=== PATIENT | male | born 1940 | race Caucasian/White ===

== ENCOUNTER 2017-04-08 06:25 | Emergency (ER) | payer OTHER, MEDICARE ==
--- NOTE | 2017-04-08 07:26 | EDPHY ---
H & P Time Seen by Provider: 04/08/17 07:25 HPI/ROS: Chief complaint. Pain in neck HPI. Patient is a 77-year-old male presents emergency department with 3 day history of nontraumatic neck pain. 3 days ago he awoke and had a right-sided stiff sore neck which has become more generalized though right-sided continues to be somewhat more symptomatic. Was better after taking Advil. He did have a flu shot 4 days ago. He has no URI symptoms and no fever. He has had no injury or unusual activity. No similar symptoms previously. No weakness or tingling to arms or legs. No chest discomfort shortness of breath or abdominal pain. Increased pain with movement of his neck ROS Constitutional. no fever/chills, no weakness Eyes. no problems with vision ENT. no sore throat, no nasal drainage Cardiovascular. no chest pain Respiratory. no shortness of breath, no cough Abdominal. no abdominal pain, no nausea/vomiting, no diarrhea . no problems urinating MS. right-sided neck pain Skin. no rash Lymph. no swollen glands Neuro. no headache, no dizziness, no difficulty walking or with speech Past Medical/Surgical History: Hypothyroid, GERD, arthritis Lumbar spine MRI in the past shows spinal stenosis and multiple level HNP Social History: Single, nonsmoker, no alcohol Smoking Status: Never smoked Physical Exam: General Appearance: Alert well-developed male mild distress vital signs are stable Eyes: Pupils equal and round no pallor or injection. ENT, Mouth: Mucous membranes are moist. Respiratory: There are no retractions, lungs are clear to auscultation. Cardiovascular: Regular rate and rhythm. Gastrointestinal: Abdomen is soft and nontender, no masses, bowel sounds normal. Neurological: Awake and alert, sensory and motor exams grossly normal. Skin: Warm and dry, no rashes. Musculoskeletal: Right side neck pain with palpable spasm. Left-sided neck not tender and without findings of spasm No tenderness over the cervical spine. TLS spine are without symptoms. Extremities symmetrical, full range of motion. Psychiatric: Patient is oriented X 3, there is no agitation. Constitutional: Initial Vital Signs Temperature (C) 36.7 C 04/08/17 06:34 Heart Rate 73 04/08/17 06:34 Respiratory Rate 20 04/08/17 06:34 Blood Pressure 149/75 H 04/08/17 06:34 O2 Sat (%) 94 10/02/17 06:34 O2 Delivery Mode Room Air Allergies/Adverse Reactions: azithromycin [From Zithromax] Allergy (Mild, Verified 04/08/17 06:34) GI upset oxycodone [Oxycodone] Allergy (Mild, Verified 04/08/17 06:34) GI upset BEE STING Allergy (Severe, Uncoded 04/08/17 06:34) swells up SHELLFISH Allergy (Severe, Uncoded 04/08/17 06:34) swells up Home Medications: Medication Instructions Recorded Hydrocodone/Acetaminophen 1 - 2 tab PO Q4H PRN #15 tab 12/13/13 [Hydrocodon-Acetaminophen 5-300] Levothyroxine [Synthroid 25 mcg 25 mcg PO DAILY06 12/13/13 (RX)] Montelukast Sodium [Singulair] 10 mg PO DAILY@1800 12/13/13 Omeprazole [Prilosec 20 mg] 20 mg PO DAILY 12/13/13 Ranitidine HCl [Zantac 75] 75 mg PO 12/13/13 CYCLOBENZAPRINE HCL [Flexeril] 5 mg PO TIDPRN PRN #10 tab 04/08/17 Medical Decision Making - Diagnostics Imaging Results: Imaging Impressions Cervical Spine MRI 04/08/17 07:38 Impression: 1. C5-C6: Increased degenerative change with stable mild spinal canal narrowing and increased severe bilateral neural foraminal stenosis, right greater than left. 2. C4-C5: Increased severe left and mild to moderate neural foraminal stenosis with stable mild spinal canal narrowing. 3. Additional findings as above. Findings discussed with Aguila Coyne on April 08, 2017 at 9:23 a.m. Cervical spine reviewed by me and discussed with Dr. Gutierrez shows fairly severe canal stenosis at C5-6 however no significant cord compression Procedures: IV normal saline. Toradol IV. Lidocaine patch ED Course/Re-evaluation: 8:45 a.m. patient is back from MRI. We had noted that his blood sugar was low. He is having juice and crackers. He is feeling much better with the lidocaine patch in IV Toradol. Re-evaluation again at 9:30 a.m.. Patient is feeling better. He and I discussed imaging and laboratory evaluation. We discussed treatment plan including criteria for return importance of follow-up and further evaluation. He expresses understanding and agreement Differential Diagnosis: This appears to be significant muscle spasm to the right paracervical muscles. I considered spinal stenosis and HNP as well. There are no neurologic findings - Data Points Laboratory Results: Laboratory Results 04/08/17 07:45 04/08/17 07:45 04/08/17 04/08/17 07:45 07:45 WBC 7.39 10^3/uL 10^3/uL (3.80-9.50) RBC 5.10 10^6/uL 10^6/uL (4.40-6.38) Hgb 15.7 g/dL g/dL (13.7-17.5) Hct 47.0 % % (40.0-51.0) MCV 92.2 fL fL (81.5-99.8) MCH 30.8 pg pg (27.9-34.1) MCHC 33.4 g/dL g/dL (32.4-36.7) RDW 13.3 % % (11.5-15.2) Plt Count 184 10^3/uL 10^3/uL (150-400) MPV 10.1 fL fL (8.7-11.7) Neut % (Auto) 63.2 % % (39.3-74.2) Lymph % (Auto) 21.2 % % (15.0-45.0) Rogers % (Auto) 11.0 % % (4.5-13.0) Eos % (Auto) 3.2 % % (0.6-7.6) Baso % (Auto) 0.9 % % (0.3-1.7) Nucleat RBC Rel Count 0.0 % % (0.0-0.2) Absolute Neuts (auto) 4.66 10^3/uL 10^3/uL (1.70-6.50) Absolute Lymphs (auto) 1.57 10^3/uL 10^3/uL (1.00-3.00) Absolute Monos (auto) 0.81 10^3/uL H 10^3/uL (0.30-0.80) Absolute Eos (auto) 0.24 10^3/uL 10^3/uL (0.03-0.40) Absolute Basos (auto) 0.07 10^3/uL 10^3/uL (0.02-0.10) Absolute Nucleated RBC 0.00 10^3/uL 10^3/uL (0-0.01) Immature Gran % 0.5 % % (0.0-1.1) Immature Gran # 0.04 10^3/uL 10^3/uL (0.00-0.10) Sodium 137 mEq/L mEq/L (134-144) Potassium 4.4 mEq/L mEq/L (3.5-5.2) Chloride 103 mEq/L mEq/L (97-110) Carbon Dioxide 27 mEq/l mEq/l (22-31) Anion Gap 7 mEq/L L mEq/L (8-16) BUN 19 mg/dL mg/dL (7-23) Creatinine 1.2 mg/dL mg/dL (0.7-1.3) Estimated GFR 59 Glucose 69 mg/dL L mg/dL (70-100) Calcium 9.1 mg/dL mg/dL (8.5-10.4) Medications Given: Discontinued Medications Ketorolac Tromethamine (Toradol) 30 mg IVP EDNOW ONE Stop: 04/08/17 07:38 Last Admin: 04/08/17 07:50 Dose: 30 mg Lidocaine (Lidoderm 5%) 1 ea TD EDNOW ONE Stop: 04/08/17 07:38 Last Admin: 04/08/17 07:50 Dose: 1 ea Departure - Departure Disposition: Home, Routine, Self-Care Clinical Impression: Cervical strain, acute Qualifiers: Encounter type: initial encounter Qualified Code(s): S16.1XXA - Strain of muscle, fascia and tendon at neck level, initial encounter Condition: Good Instructions: Acute Neck Pain (ED) Additional Instructions: Ibuprofen 600 mg every 6 hours for discomfort. Flexeril as muscle relaxer. Lidocaine patches are also helpful. Return for worsening symptoms. Recheck 2 days if not improving Referrals: Sofia Villarreal MD [Primary Care Provider] - 2-3 days, if not improved Maryanne Freed MD [Medical Doctor] - 2-3 days, if not improved Prescriptions: CYCLOBENZAPRINE HCL [Flexeril] 5 mg PO TIDPRN PRN #10 tab PRN Reason: Spasms
[2017-04-08] MEDS ORDERED: LIDOCAINE 5% 1 EA PATCH TD ONE (07:37)
[2017-04-08] MEDS ORDERED: KETOROLAC 30 MG/1 ML SDV IVP ONE (07:37)
[2017-04-08 07:54] LABS: % IMMATURE GRANULYOCYTES 0.5 % (0.0-1.1); ABSOLUTE IMMATURE GRANULOCYTES 0.04 10^3/uL (0.00-0.10); ADD DIFF? NO; ADD MORPH? NO; ADD SCAN? NO; ATYPICAL LYMPHOCYTE FLAG 0 (0-99); FRAGMENT RBC FLAG 0 (0-99); HEMOGLOBIN 15.7 g/dL (13.7-17.5); LEFT SHIFT FLG 0 (0-99); LIPEMIA HEMOLYSIS FLAG 80 (0-99); MEAN CELL HEMOGLOBIN 30.8 pg (27.9-34.1); MEAN CELL HEMOGLOBIN CONCENTR. 33.4 g/dL (32.4-36.7); MEAN CELL VOLUME 92.2 fL (81.5-99.8); MEAN PLATELET VOLUME 10.1 fL (8.7-11.7); PLATELET CLUMPS FLAG 0 (0-99); PLATELET COUNT 184 10^3/uL (150-400); RED CELL DISTRIBUTION WIDTH 13.3 % (11.5-15.2)
[2017-04-08 08:09] LABS: ANION GAP 7 mEq/L (8-16); CALCIUM 9.1 mg/dL (8.5-10.4); CARBON DIOXIDE 27 mEq/l (22-31); CHLORIDE 103 mEq/L (97-110); CREATININE 1.2 mg/dL (0.7-1.3); GLOMERULAR FILTRATION RATE 59; GLUCOSE 69 mg/dL (70-100); POTASSIUM 4.4 mEq/L (3.5-5.2); SODIUM 137 mEq/L (134-144)
[2017-04-08 09:56] VITALS: BP 140/80; PULSE 85; RESP 18; TEMP 98.4; O2SAT 95
[2017-04-08] MEDS ORDERED: PATCH REMOVAL 1 EA PATCH TD SCH (21:00)
== END 2017-04-08 09:56 | disposition home or self-care (01) ==
DX: S16.1XXA Strain of muscle, fascia and tendon at neck level, initial encounter (principal); X58.XXXA Exposure to other specified factors, initial encounter
CPT/HCPCS: 72141; 96374; 99285; J1885

== ENCOUNTER 2017-05-24 10:18 | Emergency (ER) | payer OTHER, MEDICARE ==
[2017-05-24 10:41] VITALS: BP 106/61; PULSE 66; RESP 18; TEMP 98.4; O2SAT 94
--- NOTE | 2017-05-24 11:04 | EDPHY ---
H & P Smoking Status: Never smoked Time Seen by Provider: 05/24/17 10:52 HPI/ROS: CHIEF COMPLAINT: Bleeding from tongue HISTORY OF PRESENT ILLNESS: 77-year-old male with no anticoagulant use history complaining of intermittent bleeding from the right lateral aspect of his tongue. Unsure if he bit his tongue or not. Currently hemostatic. His primary concern as he tells me is his daughter from oral cancer 2 years ago and she initially was evaluated by healthcare provider for bleeding tongue , and he is concerned he may have malignancy. PHYSICAL EXAM (Prior to examination, patient consented to physical exam, hands were washed and my usual and customary physical exam procedures followed) 1) GENERAL: Well-developed, well-nourished, alert and oriented. Appears to be in no acute distress. tearful. 2) HEAD: Normocephalic 3) HEENT: sclera anicteric. Oropharynx examined, no active bleeding, there is an area of friability right lateral posterior aspect of tongue in the general location of his molars. No evidence of gingivostomatitis, floor of mouth soft no evidence of Vik's angina. 4) LUNGS: Breathing comfortably. (Dixie,Jamee Judy) Constitutional: Initial Vital Signs Temperature (C) 36.9 C 05/24/17 10:38 Heart Rate 66 05/24/17 10:38 Respiratory Rate 18 05/24/17 10:38 Blood Pressure 106/61 05/24/17 10:38 O2 Sat (%) 94 05/24/17 10:38 O2 Delivery Mode Nasal Cannula Allergies/Adverse Reactions: azithromycin [From Zithromax] Allergy (Mild, Verified 04/08/17 06:34) GI upset oxycodone [Oxycodone] Allergy (Mild, Verified 04/08/17 06:34) GI upset BEE STING Allergy (Severe, Uncoded 04/08/17 06:34) swells up SHELLFISH Allergy (Severe, Uncoded 04/08/17 06:34) swells up Home Medications: Medication Instructions Recorded Hydrocodone/Acetaminophen 1 - 2 tab PO Q4H PRN #15 tab 12/13/13 [Hydrocodone-Acetamin 5-300 mg] Levothyroxine [Synthroid 25 mcg 25 mcg PO DAILY06 12/13/13 (RX)] Montelukast Sodium [Singulair] 10 mg PO DAILY@1800 12/13/13 Omeprazole [Prilosec 20 mg] 20 mg PO DAILY 12/13/13 Ranitidine HCl [Zantac 75] 75 mg PO 12/13/13 CYCLOBENZAPRINE HCL [Flexeril] 5 mg PO TIDPRN PRN #10 tab 04/08/17 MDM/Departure - [facility] ED Course/Re-evaluation: This patient has no active bleeding to the right lateral aspect of his tongue. He does express concern about possible malignancy as his daughter of oral cancer 2 years ago. I have recommended he follow up with oral surgery and/or otolaryngology. He is agreeable with this. States that he has seen an oral surgeon some years back, name unknown and will probably go directly from the ER to his office. This time I do not think that diagnostic studies are indicated from the emergency department. He has been given this follow-up and referral information.Care of patient under supervision of secondary supervising physician Dr Jones . (Jamee Colin) The patient was evaluated and managed by the Physician Instrument Installer. I discussed the patient's presentation and course with the physician railways assistant and agree with the evaluation. My co-signature indicates that I have reviewed this chart and I agree with the findings and plan of care as documented. I am the secondary supervising physician. (Jacki Jones) - Depart Disposition: Home, Routine, Self-Care Clinical Impression: Hemorrhage of tongue Condition: Good Instructions: Gingivostomatitis (ED) Additional Instructions: Return to the ER if you develop further episodes of bleeding that do not stop, develop dizziness or any other symptoms that concern you. Referrals: Cristi Galeana DDS [Doctor of Dental Surgery] - 1-2 days without fail (Dr. Cristi Galeana is an oral surgeon) Aguila Phoenix MD [Medical Doctor] - 1-2 days without fail (Dr. Aguila Phoenix is an ear nose and throat doctor)
== END 2017-05-24 11:13 | disposition home or self-care (01) ==
DX: K14.8 Other diseases of tongue (principal)

== ENCOUNTER → 2017-06-30 | Outpatient (CLI) | payer OTHER, MEDICARE | LOC: FIMAGING 07:47 | PROVIDERS: ATTEND Physical Medicine & Rehabilitation Pain Medicine | DX: M54.16 Radiculopathy, lumbar region (principal); M51.36 Other intervertebral disc degeneration, lumbar region; M48.061 Spinal stenosis, lumbar region without neurogenic claudication ==

== ENCOUNTER → 2018-07-14 | Outpatient (CLI) | payer OTHER, MEDICARE | LOC: FLAB 13:27 | PROVIDERS: ATTEND Physical Medicine & Rehabilitation Pain Medicine | DX: M47.812 Spondylosis without myelopathy or radiculopathy, cervical region (principal); M51.36 Other intervertebral disc degeneration, lumbar region ==

== ENCOUNTER 2018-10-03 12:18 | Observation (INO) | payer OTHER, MEDICARE ==
[2018-10-03 13:35] LABS: PLATELET COUNT 192 10^3/uL (150-400)
--- NOTE | 2018-10-03 13:49 | EDPHY ---
H & P Stated Complaint: blind spot right eye since Saturday Time Seen by Provider: 10/03/18 13:12 HPI/ROS: CHIEF COMPLAINT: Vision loss right eye HISTORY OF PRESENT ILLNESS: 78-year-old male presents with vision loss in his right eye. Onset of painless visual loss 4 days ago. The vision loss consists of loss of central vision with retained peripheral vision. He is having difficulty reading because of the vision loss. He has a history of a retinal detachment and saw his quality assurance supervisor final yesterday. Eye exam was reportedly normal. No weakness or numbness. No prior history of CVA or TIA. REVIEW OF SYSTEMS: complete 10 point ROS reviewed and is negative except for the noted elements in the HPI - Personal History Current Tetanus Diphtheria and Acellular Pertussis (TDAP): Yes - Medical/Surgical History Hx Asthma: Yes Hx Chronic Respiratory Disease: No Hx Diabetes: No Hx Cardiac Disease: No Hx Renal Disease: No Hx Cirrhosis: No Hx Alcoholism: No Hx HIV/AIDS: No Hx Splenectomy or Spleen Trauma: No Other PMH: GERD, hypothyroid, ?arthritis - Social History Smoking Status: Never smoked - Physical Exam Exam: General Appearance: Alert, pleasant Eyes: Pupils equal and round, no conjunctival pallor ENT, Mouth: Mucous membranes moist Neck: Normal inspection Respiratory: Lungs are clear to auscultation Cardiovascular: Regular rate and rhythm Gastrointestinal: Abdomen is soft and nontender Neurological: Alert, oriented x3, cranial nerves II through XII intact, motor 5 /5, sensory intact to light touch, normal gait Skin: Warm and dry Extremities: Normal inspection Psychiatric: Mood and affect normal Constitutional: Initial Vital Signs Temperature (C) 36.9 C 10/03/18 12:35 Heart Rate 59 L 10/03/18 12:35 Respiratory Rate 16 10/03/18 12:35 O2 Sat (%) 95 10/03/18 12:35 O2 Delivery Mode Room Air Allergies/Adverse Reactions: azithromycin [From Zithromax] Allergy (Mild, Verified 04/08/17 06:34) GI upset oxycodone [Oxycodone] Allergy (Mild, Verified 04/08/17 06:34) GI upset BEE STING Allergy (Severe, Uncoded 04/08/17 06:34) swells up SHELLFISH Allergy (Severe, Uncoded 04/08/17 06:34) swells up Home Medications: Medication Instructions Recorded Levothyroxine [Synthroid 25 mcg 25 mcg PO DAILY06 12/13/13 (*)] Omeprazole [Prilosec 20 mg] 20 mg PO DAILY 12/13/13 Aspirin EC [Aspirin EC 81 mg (*)] 81 mg PO DAILY tab 10/04/18 Medical Decision Making - Diagnostics EKG Interpretation: EKG interpreted by me reveals normal sinus rhythm, rate 51, no ST or T segment changes. Interpretation: Normal EKG Imaging Results: CT: persistent left extraaxial fluid collection, slightly increased Imaging: Discussed imaging studies w/ will call clerk Radiologist ED Course/Re-evaluation: This pt present with subacute visual loss, concerning for CVA. Otherwise, neuro exam unremarkable. stat EKG unremarkable. CT head: chronic hygroma/ subdural. Will need further eval of CVA as inpt. Neuro exam unchanged throughout ED stay. The hospitalist service was consulted for admission. Differential Diagnosis: includes though not limited to retinal artery/vein occlusion, migraine MUÑOZ, acute hemorrhage, retinal detachment - Data Points Laboratory Results: Laboratory Results 10/03/18 13:20 10/03/18 13:20 Medications Given: Discontinued Medications Aspirin (Aspirin) 325 mg PO EDNOW ONE Stop: 10/03/18 14:19 Last Admin: 10/03/18 14:26 Dose: 325 mg Aspirin Buffered (Aspirin Ec) 81 mg PO DAILY JAMES Stop: 04/02/19 08:59 Last Admin: 10/04/18 08:33 Dose: 81 mg Levothyroxine Sodium (Synthroid) 25 mcg PO DAILY06 [facility] Stop: 04/02/19 05:59 Last Admin: 10/04/18 06:03 Dose: 25 mcg Pantoprazole Sodium (Protonix) 40 mg PO DAILY JAMES Stop: 04/02/19 08:59 Last Admin: 10/04/18 08:33 Dose: 40 mg Point of Care Test Results: Chemistry 10/03/18 13:23 POC Troponin I 0.01 ng/mL ng/mL (0.00-0.08) Departure - Departure Disposition: [facility] Clinical Impression: Visual loss, right eye Condition: Fair
[2018-10-03] MEDS ORDERED: ASPIRIN 325 MG TAB PO ONE (14:18)
[2018-10-03] MEDS ORDERED: ONDANSETRON 4 MG/2 ML VIAL IVP PRN (14:23)
[2018-10-03] MEDS ORDERED: ONDANSETRON DISINTEGRATING 4 MG TAB PO PRN (14:23)
[2018-10-03] MEDS ORDERED: ACETAMINOPHEN 325 MG TAB PO PRN (14:23)
[2018-10-03] MEDS ORDERED: IOPAMIDOL (ISOVUE-370) 150 ML BTL IV ONE (14:33)
--- NOTE | 2018-10-03 14:50 | PDGENHP ---
History and Physical - Chief Complaint R sided vision loss - History of Present Illness Milad Gomez is a 78 yo M with a PMHx of b/l retinal detachments, hypothyroidism, and GERD who presents to [facility] for R sided vision loss. Patients that Saturday he began to have blurry vision in his central vision of his R eye. It effects him most when he is reading and not able to fully read words. He describes it as when he looks at the word "the" he is unable to see the letter T. He has had b/l retinal detachments in the past and describes those as a black curtain overtaking his vision, this phenomena he describes as much different. He denies any other symptoms including headache, weakness, numbness/ tingling, lightheadedness, facial/jaw pain, f/c, chest pain, palpitations, SOB. He saw the retinal specialist yesterday who performed a thorough eye exam per patient and saw no abnormalities and recommended patient f/u in 2 weeks to see if problem improves. History Information - Allergies/Home Medication List Allergies/Adverse Reactions: azithromycin [From Zithromax] Allergy (Mild, Verified 04/08/17 06:34) GI upset oxycodone [Oxycodone] Allergy (Mild, Verified 04/08/17 06:34) GI upset BEE STING Allergy (Severe, Uncoded 04/08/17 06:34) swells up SHELLFISH Allergy (Severe, Uncoded 04/08/17 06:34) swells up Home Medications: Levothyroxine [Synthroid 25 mcg (RX)] 25 mcg PO DAILY06 12/13/13 [Last Taken ] Omeprazole [Prilosec 20 mg] 20 mg PO DAILY 12/13/13 [Last Taken 10/03/18] I have personally reviewed and updated: family history, medical history, social history, surgical history - Past Medical History GERD Additional medical history: Hypothyroidism - Surgical History Reports: no pertinent surgical hx - Family History Positive for: non-pertinent - Social History Smoking Status: Never smoked Review of Systems Review of Systems: ROS: 10pt was reviewed & negative except for what was stated in HPI & below Physical Exam Physical Exam: Temp Pulse Resp BP Pulse Ox 36.7 C 50 L 15 127/74 H 94 10/03/18 14:00 10/03/18 14:00 10/03/18 14:00 10/03/18 14:00 10/03/18 14:00 Constitutional: no apparent distress Eyes: PERRL, anicteric sclera, EOMI, No pale conjunctiva, No scleral injection Ears, Nose, Mouth, Throat: moist mucous membranes Cardiovascular: regular rate and rhythym Respiratory: no respiratory distress, clear to auscultation Gastrointestinal: soft, non-tender abdomen Genitourinary: No lovell in urethra Skin: warm Musculoskeletal: full muscle strength Neurologic: AAOx3, sensation intact bilaterally, No weakness, No numbness, No CN II-XII Intact, No facial droop Psychiatric: interacting appropriately Lymph, Heme, Immunologic: No ecchymoses Lab Data & Imaging Review 10/03/18 13:20 10/03/18 13:20 WBC 5.64 10^3/uL (3.80-9.50) 10/03/18 13:20 RBC 5.18 10^6/uL (4.40-6.38) 10/03/18 13:20 Hgb 15.6 g/dL (13.7-17.5) 10/03/18 13:20 Hct 47.5 % (40.0-51.0) 10/03/18 13:20 MCV 91.7 fL (81.5-99.8) 10/03/18 13:20 MCH 30.1 pg (27.9-34.1) 10/03/18 13:20 MCHC 32.8 g/dL (32.4-36.7) 10/03/18 13:20 RDW 13.5 % (11.5-15.2) 10/03/18 13:20 Plt Count 192 10^3/uL (150-400) 10/03/18 13:20 MPV 10.0 fL (8.7-11.7) 10/03/18 13:20 Neut % (Auto) 50.4 % (39.3-74.2) 10/03/18 13:20 Lymph % (Auto) 31.9 % (15.0-45.0) 10/03/18 13:20 Kay % (Auto) 12.1 % (4.5-13.0) 10/03/18 13:20 Eos % (Auto) 4.3 % (0.6-7.6) 10/03/18 13:20 Baso % (Auto) 1.1 % (0.3-1.7) 10/03/18 13:20 Nucleat RBC Rel Count 0.0 % (0.0-0.2) 10/03/18 13:20 Absolute Neuts (auto) 2.85 10^3/uL (1.70-6.50) 10/03/18 13:20 Absolute Lymphs (auto) 1.80 10^3/uL (1.00-3.00) 10/03/18 13:20 Absolute Monos (auto) 0.68 10^3/uL (0.30-0.80) 10/03/18 13:20 Absolute Eos (auto) 0.24 10^3/uL (0.03-0.40) 10/03/18 13:20 Absolute Basos (auto) 0.06 10^3/uL (0.02-0.10) 10/03/18 13:20 Absolute Nucleated RBC 0.00 10^3/uL (0-0.01) 10/03/18 13:20 Immature Gran % 0.2 % (0.0-1.1) 10/03/18 13:20 Immature Gran # 0.01 10^3/uL (0.00-0.10) 10/03/18 13:20 Sodium 137 mEq/L (135-145) 10/03/18 13:20 Potassium 4.4 mEq/L (3.5-5.2) 10/03/18 13:20 Chloride 106 mEq/L (97-110) 10/03/18 13:20 Carbon Dioxide 23 mEq/l (22-31) 10/03/18 13:20 Anion Gap 8 mEq/L (6-14) 10/03/18 13:20 BUN 25 mg/dL (7-23) H 10/03/18 13:20 Creatinine 1.0 mg/dL (0.7-1.3) 10/03/18 13:20 Estimated GFR > 60 10/03/18 13:20 Glucose 98 mg/dL (70-100) 10/03/18 13:20 Calcium 8.7 mg/dL (8.5-10.4) 10/03/18 13:20 POC Troponin I 0.01 ng/mL (0.00-0.08) 10/03/18 13:23 Assessment & Plan Assessment: Homonymous Hemianopsia - Duration 4 days, no other associated symptoms - Hx of b/l retinal detachments, saw retinal specialist yesterday with no significant findings - CT Head w/o IVC performed on admission with no acute findings, noted heterogeneous extraaxial fluid overlying the L cerebral hemisphere is more prominent that 2009 and 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 outpatient Hypothyroidism - Continue home Levothyroxine - TSH WNL 08/2018 GERD - Continue home PPI FEN: Regular DVT PPx: SCDs Code: FULL Dispo: Admit to Observation
--- NOTE | 2018-10-03 15:17 | CPEKG ---
Test Reason : OPEN Blood Pressure : / mmHG Vent. Rate : 051 BPM Atrial Rate : 051 BPM P-R Int : 192 ms QRS Dur : 103 ms QT Int : 444 ms P-R-T Axes : 061 024 040 degrees QTc Int : 409 ms Sinus rhythm Confirmed by Paulina Joyce ([id number]) on 10/03/2018 3:16:53 PM Referred By: PAULINA JOYCE Confirmed By:Paulina Joyce
[2018-10-03] MEDS ORDERED: GADOBUTROL 10 ML VIAL IVP ONE (15:18)
[2018-10-04] MEDS ORDERED: LEVOTHYROXINE 25 MCG TAB PO SCH (06:00)
[2018-10-04] MEDS ORDERED: ASPIRIN EC 81 MG TAB PO SCH (09:00)
[2018-10-04] MEDS ORDERED: ENOXAPARIN 40 MG/0.4 ML SYR SC SCH (09:00)
[2018-10-04] MEDS ORDERED: PANTOPRAZOLE SODIUM 40 MG TAB PO SCH (09:00)
--- NOTE | 2018-10-04 09:35 | GCON ---
[f rep st] CONSULTATION NEUROLOGIC CONSULTATION REFERRING PHYSICIAN: Aristides Vasquez DO REASON FOR CONSULTATION: The patient is a 78-year-old gentleman who I am asked to see in neurologic consultation for decreased vision in the right eye. He noticed this 5 days ago when the central port ion of his vision in the right eye was impaired. He would miss portions of a word or a word next to the one he was reading, but no other larger area of visual loss. He has history of retinal detachment in the past and had ophthalmologic exam, but there was no eviden ce of a retinal anomaly, so he was advised to have neurologic evaluation and went to the emergency ro . He otherwise has no complaints. Since admission, he has not had any deterioration. He told me he used to take aspirin fairly regularly, but stopped that in July for an injection procedure. He has never had this phenomenon before. He denies any headache or pain in the eye. No chest pain, pa lpitations, or shortness of breath. FAMILY HISTORY: Noncontributory. PAST MEDICAL HISTORY: He has a history of reflux and hypothyroidism. SOCIAL HISTORY: No smoking history. REVIEW OF SYSTEMS: Unremarkable. PHYSICAL EXAMINATION: VITAL SIGNS: The blood pressure is 117/68, pulse of 57, respirations 20, temp erature 36.6. GENERAL: He is well developed, in no acute distress. NECK: Supple with no bruits or masses. CARDIAC: Regular rate and rhythm. No murmur. NEUROLOGIC: He is alert and attentive, wit h clear fluent speech. Normal cognition. Pupils are 2 mm and reactive. Extraocular movements intac t. No visual field loss. There is the slightly decreased vision he can perceive through the right e ye. Normal facial sensation and strength. Motor exam reveals normal muscle bulk and tone with 5/5 s trength and no abnormal movements. Sensation is preserved for temperature and light touch. Reflexes are 1+. IMAGING: Head CT is unremarkable. Brain MRI reveals no evidence of acute stroke. There is a hygrom a over the left hemisphere with possible arachnoid cyst in the vertex, but no evidence of acute hemor rhage. CT angiogram of the head and neck are unremarkable. LABORATORY DATA: LDL cholesterol 85. Sedimentation rate of less than 1. Normal CBC and electrolyte s otherwise. IMPRESSION: Total unit time of 50 minutes. The patient has experienced amaurosis fugax and possible optic nerve or retinal ischemic change based on this scotoma he describes. The recommendation is da lamar aspirin. Statin therapy is appropriate to consider, but he would rather have a discussion with h is primary care before going on that, and I explained to him that is perfectly reasonable, but may be due to his advantage to take for secondary stroke prophylaxis, even with the normal LDL. Echocardio gram is pending. Unless that shows something unexpected, then [facility] and can follow up with Neurology purely as needed and follow up with Ophthalmology, which is sche duled in the near future, and establish a followup with his primary care for further discussions on h is condition and optimal management strategies. The patient's current NIH Stroke Scale is 1 for the partial visual impairment. Copy requested to: [facility] /[id number]/MODL
--- NOTE | 2018-10-04 10:00 | ASMTCMCOM ---
CM Note CM Note Notes: Pt is a 78 y/o male, with a hx of retinal detachment, who presented to the ED with vision loss in his right eye. His retinal opthalmologist examined his eye and found no changes. Pt lives in [place] with his , Cassandra [phone].It is anticipated that pt will have no CM needs upon d/c; CM will follow for changes. D/C Plan: Anticipate independent. Date Signed: 10/04/2018 10:00 AM Electronically Signed By:Christine Pugh
[2018-10-04 11:34] VITALS: BP 113/69
--- NOTE | 2018-10-04 11:43 | ECHO ---
[email or web address] [address] [address] Main: [phone] Echocardiography Examination Transthoracic Name: YASEMIN CUMMINGS MR#: [id number] Study Date: 10/04/2018 Study Time: 10:02 AM Date of : 1940 Age: 78 year(s) Height: 170.2 cm (67 in.) Weight: 81.65 kg (180 lb.) BSA: 1.93 m2 Gender: Male Examination: Echo Contrast: Image Quality: Adequate Rhythm: Heart Rate: BP: 117 mmHg/68 mmHg Indication: Left eye visual loss Procedure Staff Referring Physician: Property Management Coordinator: Tamika Morin [facility] Reading Physician: Brennan Mtz MD Requesting Provider: Indication: Left eye visual loss Measurements Chambers AV/MV Label Value Normal Value Label Value Normal Value EF lower range (%) 65 % AR PHT 0.8 s EF upper range (%) 70 % AR PHT 804 ms IVSd, 2D 0.8 cm (0.6cm - 1.1cm) AR Vmax 3.96 m/s LVDd, 2D 5.3 cm (4.2cm - 5.9cm) AV PGmean 3 mmHg LVDs, 2D 3.2 cm (2.1cm - 4cm) MV A Vmax 0.54 m/s LVEF, 2D 70 % (54% - 74%) MV E' lateral 0.08 m/s LVEF, BP 70 % (55% - 70%) MV E' mean 0.07 m/s LVPWd, 2D 0.9 cm (0.6cm - 1cm) MV E' septal 0.06 m/s LA Volume, BP 52 ml (18ml - 58ml) MV E Vmax 0.55 m/s LADs, 2D 4.4 cm (3cm - 4cm) MV E/A 1.02 LAESV index, BP 26.9 ml/m2 MV E/E' lateral 6.7 Additional Vessels MV E/E' mean 7.86 Label Value Normal Value MV E/E' septal 8.5 (0.45 - 1.25) AoRoot, MM 4.7 cm (2.2cm - 3.7cm) TV/PV Label Value Normal Value RA Pressure 5 mmHg RVSP 26 mmHg TR Pmax 21 mmHg TR Vmax 2.29 m/s Patient: YASEMIN CUMMINGS Study Date: 10/04/2018 Page 1 of 3 10:02 AM Conclusions Left Ventricle: Left ventricle is normal in size. EF range is estimated at 65 % - 70 %. Right Ventricle: Mildly dilated right ventricle. Right ventricular systolic function is normal. Left Atrium: The left atrium is normal in size. IAS: An agitated saline study was performed and was negative for intracardiac shunting. Right Atrium: The right atrium is normal in size. Tricuspid Valve: Pulmonary artery pressure normal. Findings Left Ventricle: Left ventricle is normal in size. Normal global systolic left ventricular function. The ejection fraction, measured by Simpsons method, is 70 %. EF range is estimated at 65 % - 70 %. Left ventricle wall thickness is normal. There are no regional wall motion abnormalities. Grade I Diastolic Dysfunction. IVS: The septum is intact. Right Ventricle: Mildly dilated right ventricle. Right ventricular wall thickness is normal. Right ventricular systolic function is normal. Left Atrium: The left atrium is normal in size. IAS: An agitated saline study was performed and was negative for intracardiac shunting. Right Atrium: The right atrium is normal in size. Mitral Valve: Mitral valve appears structurally normal. Mild mitral regurgitation. No mitral valve stenosis. Aortic Valve: PHT of 804 ms consistent with mild AI. . Aortic leaflets exhibit normal cuspal separation. Mild aortic regurgitation is present. There is no aortic stenosis. The aortic valve is trileaflet. Tricuspid Valve: Tricuspid valve leaflets are normal in appearance and function. Mild tricuspid regurgitation. No tricuspid valve stenosis. Right Ventricular systolic pressure is measured at 26 mmHg. Pulmonary artery pressure normal. Pulmonic Valve: Pulmonic valve is poorly visualized. Trivial pulmonic valve regurgitation is present. There is no pulmonic valve stenosis. Aorta: The aorta is normal. The aortic root size in M-mode measures 4.7 cm. The aortic root exhibits moderate dilation. Aorta Measurements AoRoot, MM is 4.7 cm. Pulmonary Artery: The pulmonary artery morphology appears normal. Patient: YASEMIN CUMMINGS Study Date: 10/04/2018 Page 2 of 3 10:02 AM IVC: There is greater the 50% respiratory excursion. Pericardium: No pericardial effusion. No pleural effusion present. Exam Details Procedure Ordered: Echo Procedure Status: Routine study Image Quality: Adequate Facility Location: Cardiac Echo 1 (No Signature Object) Patient: YASEMIN CUMMINGS Study Date: 10/04/2018 Page 3 of 3 10:02 AM [id number]
--- NOTE | 2018-10-04 17:56 | GDS ---
[f rep st] DISCHARGE SUMMARY DIAGNOSES: 1. Amaurosis fugax. 2. Dilated aortic root at 4.7 cm needs annual echocardiogram followup. 3. Hypothyroidism, on replacement. 4. Gastroesophageal reflux disease. CONSULTATIONS: Neurology, Antolin Allison MD. PROCEDURES DONE: 1. Brain MRI without contrast showing no CVA. 2. Neck and head CT angiogram showing no lesions. 3. Head CT without contrast showing nothing acute. 4. Echocardiogram showing a slightly dilated aortic root at 4.7 cm. I discussed this with Dr. Vivian brandt who recommends annual echocardiogram followup. HOSPITAL COURSE: The patient is a 78-year-old healthy man who comes in with visual loss. He said he lost part of his vision in his right eye. He went to see an banana handler who did a retinal exam and showed no obvious abnormalities, so he came to the emergency room and had a stroke evaluation don e with the above findings. Neurology saw him and recommended aspirin therapy. As far as a statin th erapy for stroke prevention, he can discuss this with his primary care provider, Dr. Villarreal. Of note , echocardiogram was done and showed a mildly dilated aortic root. I did discuss this with Ilene clinton who recommends annual followup echocardiogram. He can schedule followup now to get in the syste m and get on a tickler to get routine echos or the primary care provider can do this as an outpatient . CONDITION ON DISCHARGE: Good. DISCHARGE MEDICATIONS: Please see discharge medication form. Aspirin is added to his list. FOLLOWUP INSTRUCTIONS: He should follow up with Dr. Villarreal in the next 1 to 2 weeks. Follow up with [facility] in a year or sooner to establish care. /[id number]/MODL
== END 2018-10-04 13:01 | disposition home or self-care (01) ==
LOC: F3N 15:47
PROVIDERS: ADMIT Internal Medicine; ATTEND Internal Medicine
DX: G45.3 Amaurosis fugax (principal); I77.810 Thoracic aortic ectasia; R29.701 NIHSS score 1; R93.0 Abnormal findings on diagnostic imaging of skull and head, not elsewhere classified; E03.9 Hypothyroidism, unspecified; K21.9 Gastro-esophageal reflux disease without esophagitis; J45.909 Unspecified asthma, uncomplicated; Z86.69 Personal history of other diseases of the nervous system and sense organs
CPT/HCPCS: 70450; 70496; 70498; 70553; 93005; 93306; 97161; 99285; A9585; G0378; Q9967; 84484-ER; J1650